=== PATIENT | female | born 1975 | race Hispanic/Latino ===

== ENCOUNTER 2016-09-17 12:11 | Day surgery (SDC) | payer OTHER ==
[2016-09-17] VITALS (8 sets, daily range): BP systolic 110–119; BP diastolic 58–67; PULSE 68–90; RESP 10–18; O2SAT 98–100
[~2016-09-17] VITALS: Ht 162.6 cm; Wt 74.7 kg
[~2016-09-17 12:11] MED LIST: Dexamethasone 4 mg/mL Inj IVPUSH PRN; EPHEDrine Sulfate 50 mg/mL Inj IVPUSH PRN; FERR-83 PO; HYDROmorphone 1 mg/mL Inj IVPUSH PRN; Lactated Ringer's 1,000 ML IV SCH; Lactated Ringer's 500 ML IV PRN; MEDR10TA9 PO; MetoCLOpramide 5 mg/mL 2 mL Inj IVPUSH PRN; Ondansetron 2 mg/mL 2 mL Inj IVPUSH PRN; Phenylephrine 10,000 mCg/mL Inj IVPUSH PRN; fentaNYL-PF 50 mCg/mL 2 mL Inj IVPUSH PRN
[2016-09-17] MEDS ORDERED: Ondansetron 2 mg/mL 2 mL Inj ONE (12:12)
[2016-09-17] MEDS ORDERED: fentaNYL-PF 50 mCg/mL 2 mL Inj ONE (12:12)
[2016-09-17] MEDS ORDERED: Propofol 10,000 mCg/mL 20 mL Inj ONE (12:12)
[2016-09-17] MEDS ORDERED: Dexamethasone 4 mg/mL Inj ONE (12:12)
[2016-09-17] MEDS: Lactated Ringer's 1,000 ML IV SCH ×2 (12:22→14:24)
[2016-09-17] MEDS ORDERED: Acetaminophen IV 1,000 MG in IV Premix 1 EACH IV ONE (13:55)
--- NOTE | 2016-09-17 14:00 | PCM.HPANE ---
Patient Data Date of Service: Sep 17, 2016 Surgeon Admitting Provider: Attending Provider:Roxie Lovell MD Primary Care Physician:Ulysses Baum MD Other Provider:Theresa Stock Anesthesia Reason for Visit Abnormal Uterine Bleeding Ht/WT & BMI Height (Feet): 5 Height (Inches): 1.5 Weight (Kilograms): 74.84 Body Mass Index 30.00 Allergies Coded Allergies: No Known Allergies (Verified Allergy, Unknown, 09/16/16) Past Anesthesia History Anesthesia History: Denies:: Anesthesia Reactions Diabetes History Hx Diabetes?: No Medications Reported Medications Ferrous Sulfate 325 Mg [id number] Mg PO BID 30 Days Ref 0 09/15/16 Discontinued Reported Medications Medroxyprogesterone 10 Mg [id number] Mg PO DAILY 09/15/16 No Historical Medication Ea 01/23/10 History History of ENT Problems?: No HEENT History: Denies:: Abnormal Airway Denture Type: None Teeth Condition: Tooth Decay Hx of Heart Problems?: No Cardiovascular History: Denies:: Hypertension Hx of Respiratory Problem?: No Respiratory History: Denies:: Oxygen Administration Use of C-PAP Machine Hx Neurologic Problems?: No Hx of GI Problems?: No Hx of Problems?: No Female Hx: Denies:: Currently (tubal) Hx Musculoskeletal Problems?: No Musculoskeletal History: Denies:: Joint Replacement Hx of Psycho/Social Problems?: No Hx Surgeries?: Yes (D+C, tubal, C section) Hx Any Other Health Problems?: Yes Other History: Denies:: Cancer Thyroid Disease Hx Diabetes: No Hx Alcohol Use: NoHx Substance Use: NoHave You Smoked inLast 12 mo: No Stop/Bang S-Snoring: Do You Snore Loudly: No T-Tired: feel tired, fatigued: No O-Obsered: Observed not breath: No P-Blood Pressure: treated: No B- Body Mass Index > 35 kg/m2: No A- Age over 50: No N- Neck Large Circumference: No G- Gender Male: No GREGORY Total Score: 0 GREGORY Risk Assessment: Low Risk, <3 Yes Risk Assessment Category Category 1A: Patient has history of documented sleep apnea, and HAS NOT received any narcotic, sedative or anesthesia administration during this stay. Category 1B: Patient has history of documented sleep apnea, and HAS received any narcotic , sedative or anesthesia administration during this stay Category 2: Patient has SUSPECTED Obstructive Sleep Apnea, and HAS received any narcotic , sedative or anesthesia administration during this stay. Category 3: Patient has SUSPECTED Obstructive Sleep Apnea and HAS NOT received narcotic, sedative or anesthesia administration during this stay. Category 4: Outpatient in Procedural Areas with known sleep apnea or who screen positive for High Risk via the STOP/BANG questionnaire. Exam Exam General Appearance: Alert, Oriented X3, Cooperative, No Acute Distress HEENT/AIRWAY: MP 2 Lungs: Clear to Auscultation, Normal Air Movement Heart: Exam Unremarkable, Regular Rate/Rhythm, No Murmurs/Rubs/Gallops Plan Impression Patient chart reviewed, patient interviewed and anesthestic plan with risks, benefits, and alternatives discussed, and informed consent obtained. NPO per Anesth. Guidelines: Yes ASA Physical Status: ASA1 Normal Healthy Anesthetic Plan: GA Bene/Risks/Altern/Consents: Yes HP Complete Prior to Induction: Yes Too Brown MD Sep 17, 2016 07:41 Zhang Herrera MD Sep 17, 2016 14:00
--- NOTE | 2016-09-17 14:02 | PCM.DIOB ---
Obstetrical Disch Instruction Date of Service: Sep 17, 2016 Dates of Hospitalization Date of Hospital Admission Providers Admitting Physician: Primary Care Physician: Ulysses Baum MD Attending Physician: Roxie Lovell MD Discharge Diagnosis Discharge Diagnosis Abnormal uterine bleeding status post hysteroscopy D&C and sampling of the endometerial lining under direct visualization. Problems: Diet Discharge Diet: Heart Healthy Activity Discharge Activity-General: No lifting >15 pounds for 2 weeks, Other (no sex, tampons or douching for 2 weeks ) Dressing and Incisional Care Hygiene: May shower Follow Up Plan Follow-up Provider (F9): Roxie Lovell MD Follow-up appointment: Weeks (Two) Call your provider for: Fever or Chills, Shortness of breath, Heavy vaginal bleeding, Heavy bleeding, Epigastric pain, Excessive constipation, Vaginal discomfort, Red painful breasts, Other (burning urination) Roxie Lovell MD Sep 17, 2016 14:02
--- NOTE | 2016-09-17 15:32 | PCM.ANEP1 ---
Post Anesthesia PACU Phase 1 Assessment Date of Service: Sep 17, 2016 Vital Signs 36.4 113/60 94 9 100% RA Anesthetic Administered: GA Level of Alertness: Sleepy, easy to arouse CRANE's with Equal Strength: Yes Pain: No Nausea or Vomiting: No CV Function & Hydration Stable: Yes Airway Device: Oxygen Delivery: Room Air Lungs: Clear to Auscultation, Normal Air Movement PACU Phase 2 Assessment Complications: No Follow up Care: No Patient Instructions Provided: Yes Zhang Herrera MD Sep 17, 2016 15:32
--- NOTE | 2016-09-17 20:22 | OP ---
[address] [address] OPERATIVE REPORT PATIENT: ALECIA CABRERA : 1975 MR#: [id number] ADMIT: 09/17/2016 JOB ID: [id number] DATE OF SURGERY: 09/17/2016 PREOPERATIVE DIAGNOSIS(ES): Abnormal uterine bleeding. POSTOPERATIVE DIAGNOSIS(ES): Abnormal uterine bleeding. SURGEON: Roxie Lovell MD. [employer]Y BUILDER: None. PROCEDURE: 1. Hysteroscopy. 2. Dilation and curettage. 3. Sampling of endometrial lesion under direct visualization. COMPLICATIONS: None. IMPLANTS: None. ESTIMATED BLOOD LOSS: 75 mL. ANESTHESIA: General. SPECIMEN REMOVED: 1. Endocervical curettings. 2. Endometrial curettings. 3. Directed endometrial biopsy. FINDINGS: Exam under anesthesia revealed an enlarged uterus, approximately 14-16 weeks in size, mobile with normal adnexa to palpation. No palpable adnexal masses. Uterine was sounded to 14 cm. Hysteroscopic finding: Normal-shaped endometrial cavity with no polyps or submucosal fibroids visualized, but there was an area of patchy discolorations with darker spots mostly in the anterior and fundal uterine wall. Both ostia were visualized. DESCRIPTION OF PROCEDURE: After informed consent was obtained, the patient was taken to the operation room. She was placed under general anesthesia. Then, she was placed in dorsal lithotomy position. She was prepped and draped in usual sterile fashion for pelvic procedure. Heavy weighted speculum was placed in the posterior vaginal vault. Anterior retractor was used with good visualization of the cervix. Anterior lip of the cervix was grasped with single-tooth tenaculum. The cervix was dilated to a size 6 Hegar dilator. Then, a size 6.25 mm hysteroscope was introduced through the cervix with good visualization of the endometrial cavity with the findings as mentioned above. Then, decision was made to directly sample the area of hyperpigmentation or the darker spots in the uterine fundus and the anterior uterine wall. So, light MyoSure device was used to sample the darker spot areas. Then the hysteroscope was removed and a medium-sized curette was passed through the cervical os to perform the curettage part of the procedure. The uterine cavity was systematically curettaged in all four quadrants. Then, the curette was removed and the hysteroscope was reintroduced. A normal-shaped uterine cavity was noted and a good result of the curettage with scraping marking all over the uterine cavity. The hysteroscope was removed. Single-tooth tenaculum was removed. Minimal bleeding from the tenaculum site was noted. Monsel's solution was applied with excellent hemostasis. All instruments were removed from the vagina. All instruments, needles and sponge counts were correct x2. The patient tolerated the procedure well and was transferred to the recovery room in stable condition. Roxie Romero MD, was present and scrubbed for the entire procedure.
--- NOTE | 2016-09-21 14:29 | PATH ---
SURGICAL PATHOLOGY Attending Physician:Roxie Lovell CASE STATUS: Signed Out PATIENT NAME: ALECIA CABRERA PID: [id number] : 1975 DATE COLLECTED:09/17/2016 00:00 SPECIMEN: 1: Endocervix, Curettage 2: Endometrium, Curettage 3: Endometrium, Biopsy CLINICAL HISTORY: ABNORMAL UTERINE BLEEDING 1). ENDOCERVICAL CURETTINGS 2). ENDOMETRIAL CURETTINGS 3). DIRECTED ENDOMETRIAL BIOPSY FROM ENDOMETRIAL DARK LESION FINAL DIAGNOSIS: 1.ENDOCERVICAL CURETTINGS: FRAGMENTS OF SQUAMOUS EPITHELIUM AND ENDOCERVICAL EPITHELIUM NEGATIVE FOR ATYPIA. 2.ENDOCERVICAL CURETTINGS: LATE SECRETORY ENDOMETRIUM WITH CHANGES OF STROMAL BREAKDOWN (CONSISTENT WITH PREMENSTRUAL PHASE), NEGATIVE FOR ATYPIA. 3.DIRECTED ENDOMETRIAL BIOPSY FROM ENDOMETRIAL DARK LESION: LATE SECRETORY ENDOMETRIUM WITH CHANGES OF STROMAL BREAKDOWN (CONSISTENT WITH PREMENSTRUAL PHASE), NEGATIVE FOR ATYPIA. MULTIPLE TISSUE FRAGMENTS WITH ADENOMYOSIS, NEGATIVE FOR ATYPIA. ICD10 N92 GROSS DESCRIPTION: Received are three formalin-filled containers, each labeled with the patient's name. 1. Received in formalin, labeled with the patient's name and "endocervical curetting" is a collection of mucoid montanez tissue measuring 0.3 x 0.3 x 0.1 cm in aggregate. All fragments are totally submitted in cassette 1A. 2. Received in formalin, labeled with the patient's name and "endometrial curetting" is a collection of montanez tissue fragments measuring 2.0 x 1.0 x 1.0 cm in aggregate. All fragments are totally submitted in cassette 2A. 3. Received in formalin, labeled with the patient's name and "dissected endometrial biopsy" is a collection of light montanez tissue fragments measuring 2.0 x 1.5 x 0.5 cm in aggregate. All fragments are totally submitted in cassette 3A. ([id number]) MICRO DESCRIPTION: See diagnosis. ICD-9 CODES: CPT CODES: 1: 95293 2: 08005 3: 76643 Electronically Signed Out Aakash Thornton MD [facility] [address], [place] [address] Technical component performed at [facility], [facility] [address], [place], [address]
== END 2016-09-17 23:59 | disposition home or self-care (01) ==
LOC: SAS 12:11
PROVIDERS: ATTEND Obstetrics & Gynecology
DX: N93.9 Abnormal uterine and vaginal bleeding, unspecified (principal); F32.9 Major depressive disorder, single episode, unspecified; M54.6 Pain in thoracic spine; E66.9 Obesity, unspecified; Z87.19 Personal history of other diseases of the digestive system; Z68.30 Body mass index [BMI] 30.0-30.9, adult
CPT/HCPCS: 36415; 58558; 86850; 88305; J1100; J1885; J2250; J2405; J3010; J7120